=== PATIENT | male | born 1995 | race Caucasian/White ===

== ENCOUNTER 2017-06-30 01:13 | Emergency (ER) | payer SELFPAY ==
[~2017-06-30] VITALS: Ht 175.3 cm; Wt 84.0 kg
[2017-06-30 02:35] VITALS: BP 122/76
== END 2017-06-30 02:41 | disposition home or self-care (01) ==
LOC: ER 01:13
DX: M25.531 Pain in right wrist (principal); F12.90 Cannabis use, unspecified, uncomplicated; F19.90 Other psychoactive substance use, unspecified, uncomplicated; Z88.0 Allergy status to penicillin
CPT/HCPCS: 99283